=== PATIENT | male | born 1995 | race Caucasian/White ===

== ENCOUNTER 2022-07-31 16:34 | Emergency (ER) | payer OTHER ==
[2022-07-31 16:54] VITALS: BP 116/68; PULSE 76; RESP 18; TEMP 98.5; BMI 23.0
[2022-07-31] MEDS ORDERED: IBUPROFEN 600 MG TABLET (FP) PO ONE ×2 (17:29)
== END 2022-07-31 18:11 | disposition home or self-care (01) ==
LOC: JERFT 16:34 → JER 16:34 → JERFT 18:11
DX: S70.01XA Contusion of right hip, initial encounter (principal); W22.8XXA Striking against or struck by other objects, initial encounter
CPT/HCPCS: 73521-TC-FY; 99283-25